=== PATIENT | female | born 1955 ===

== ENCOUNTER 2018-03-23 14:57 | Emergency (ER) | payer OTHER ==
[2018-03-23 15:15] VITALS: RESP 16
--- NOTE | 2018-03-23 16:06 | C.PDOC ---
History Of Present Illness 63 year old female, with history of cataracts surgery in [place] 28 days ago, presents to the ED for evaluation of swelling, redness and tearing around her left eye. Patient states she stopped using her medication. Patient was seen in the clinic and was referred to the ED to "check the pressure" in her eyes. Patient reports poor vision in both eyes and denies vision loss, fever, chills, nausea, vomiting. Time Seen by Provider: 03/23/18 15:21 Chief Complaint (Nursing): Eye Problem History Per: Patient History/Exam Limitations: no limitations Current Symptoms Are (Timing): Still Present Quality: "Pain" Associated Symptoms: denies: Pain Additional History Per: Patient Past Medical History Reviewed: Historical Data, Nursing Documentation, Vital Signs Vital Signs: Last Vital Signs Temp 98.2 F 03/23/18 16:27 Pulse 84 03/23/18 16:27 Resp 16 03/23/18 16:27 BP 114/64 03/23/18 16:27 Pulse Ox 98 03/23/18 19:55 - Medical History PMH: HTN Surgical History: No Surg Hx Family History: States: Unknown Family Hx - Social History Hx Alcohol Use: Yes Hx Substance Use: No Review Of Systems Constitutional: Negative for: Fever, Chills Eyes: Positive for: Other (swelling, redness and tearing around left eye ) Gastrointestinal: Negative for: Nausea, Vomiting Physical Exam - Physical Exam Appears: Non-toxic, No Acute Distress Skin: Normal Color, Warm, Dry Head: Atraumatic, Normacephalic Eye(s): bilateral: PERRL, EOMI, left: Other (conjunctival inflammation. no swelling ) Neck: Normal ROM, Supple Extremity: Normal ROM Neurological/Psych: Oriented x3, Normal Speech, Normal Cognition Additional Physical Exam Comments: ocular pressure with tonopen: 16 ED Course And Treatment O2 Sat by Pulse Oximetry: 98 (on RA) Pulse Ox Interpretation: Normal Medical Decision Making Medical Decision Making: Progress: Case discussed with DR. Ivory, recommends for patient to continue her medication and f/u with him in clinic tomorrow. Disposition Counseled Patient/Family Regarding: Need For Followup - Disposition Referrals: Guy Ivory MD [Staff Provider] - Disposition: HOME/ ROUTINE Disposition Time: 16:03 Condition: STABLE Additional Instructions: Siga con el Opthalmologo justin pronto pueda. Forms: [facility] ([place]), Gen Discharge Inst [place] - POA Present On Arrival: None - Clinical Impression Clinical Impression: Pain in eye - Scribe Statement The provider has reviewed the documentation as recorded by the Scribe (Zoey Macdonald) Provider Attestation: All medical record entries made by the Scribe were at my direction and personally dictated by me. I have reviewed the chart and agree that the record accurately reflects my personal performance of the history, physical exam, medical decision making, and the department course for this patient. I have also personally directed, reviewed, and agree with the discharge instructions and disposition.
[2018-03-23 16:28] VITALS: BP 114/64; PULSE 84; TEMP 98.2
[2018-03-23 19:46] VITALS: O2SAT 98
== END 2018-03-23 16:28 | disposition home or self-care (01) ==
LOC: C.ER 14:57
DX: H57.12 Ocular pain, left eye (principal)